=== PATIENT | male | born 1980 | race Caucasian/White ===

== ENCOUNTER 2021-05-12 04:45 | Emergency (ER) | payer OTHER ==
[~2021-05-12] VITALS: Ht 193 cm; Wt 112.7 kg
[2021-05-12 04:52] VITALS: BP 146/98
[2021-05-12] MEDS ORDERED: ketorolac trometh. 30mg/ml inj. IM ONE (05:30)
== END 2021-05-12 06:21 | disposition home or self-care (01) ==
LOC: ER 04:47
DX: R07.89 Other chest pain (principal)
CPT/HCPCS: 96372; 99283; J1885